=== PATIENT | female | born 1995 | race Caucasian/White ===

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

== ENCOUNTER 2017-05-10 22:11 | Emergency (ER) | payer SELFPAY ==
[2017-05-10] MEDS ORDERED: MAG HYDROX/AL HYDROX/SIMETH 30 ML, HYOSCYAMINE ELIXIR 10 ML, CIMETIDINE HCL 300 MG, LID... PO STA ×4 (22:42)
--- NOTE | 2017-05-10 22:43 | ED ---
Abdominal Pain HPI - General Chief Complaint: Abdominal Pain Stated Complaint: Throat Pain, Abd Pain, Muscle Pain in back Time Seen by Provider: 05/10/17 22:33 Source: patient Mode of arrival: ambulatory Limitations: no limitations - History of Present Illness Initial Comments: This patient is a 21-year-old woman who presents to be evaluated for 2 complaints. The first complaint is that she is having some epigastric burning that is been going on for 3-4 weeks. She states that it is constant, moderate, sometimes worse with eating. She has not noted relieving factors. It does sometimes radiate to her back. She states that the pains may have been worse after she had been given some antibiotics for suspected cervicitis. The patient states that she does occasionally have some nausea and that for about the past month she is not really having solid stools. Her second complaint is of some sore throat that she believes is related to black mold in the residence that she lives in. She denies fever or chills. No cough. There is some occasional congestion and postnasal drip. She is able to eat and drink. No change in speech or voice. MD Complaint: abdominal pain Onset/Timin -: week(s) Location: epigastric Radiation: back Severity: moderate Quality: burning Consistency: constant Improves With: nothing Worsens With: eating Context: recent antibiotic use Associated Symptoms: nausea, diarrhea - Related Data Previous Rx's Medication Instructions Recorded Famotidine [Pepcid] 20 mg PO BID #14 tablet 05/11/17 Allergies Allergy/AdvReac Type Severity Reaction Status Date / Time cefuroxime [From Ceftin] Allergy Rash/Hives Verified 05/10/17 22:26 Penicillins Allergy Rash/Hives Verified 05/10/17 22:26 sulfamethoxazole Allergy Itching Verified 05/10/17 22:26 [From Bactrim] trimethoprim [From Bactrim] Allergy Itching Verified 05/10/17 22:26 Review of Systems ROS Statement: Those systems with pertinent positive or pertinent negative responses have been documented in the HPI. ROS Other: All systems not noted in ROS Statement are negative. Constitutional: Denies: fever, chills, weakness ENT: Reports: throat pain. Denies: ear pain, dental pain, hearing loss, epistaxis, congestion Respiratory: Denies: cough, dyspnea, wheezes Cardiovascular: Denies: chest pain, palpitations Gastrointestinal: Reports: abdominal pain, nausea, diarrhea. Denies: vomiting, constipation, melena, hematochezia Genitourinary: Denies: dysuria, hematuria, discharge Musculoskeletal: Denies: back pain Skin: Denies: rash Neurological: Denies: headache, weakness, numbness Past Medical History Past Medical History: No Reported History History of Any Multi-Drug Resistant Organisms: None Reported Past Surgical History: Tonsillectomy Past Psychological History: Anxiety Smoking Status: Never smoker Past Alcohol Use History: None Reported Past Drug Use History: None Reported General Exam Limitations: no limitations General appearance: alert, in no apparent distress, obese Head exam: Present: atraumatic, normocephalic, normal inspection Eye exam: Present: normal appearance. Absent: scleral icterus, conjunctival injection ENT exam: Present: mucous membranes moist, other (There is cobblestoning of the pharynx.) Neck exam: Present: normal inspection, full ROM. Absent: tenderness, meningismus, lymphadenopathy Respiratory exam: Present: normal lung sounds bilaterally. Absent: respiratory distress, wheezes, rales, rhonchi, stridor Cardiovascular Exam: Present: regular rate, normal rhythm, normal heart sounds. Absent: systolic murmur, diastolic murmur, rubs, gallop GI/Abdominal exam: Present: soft, normal bowel sounds. Absent: distended, tenderness, guarding, rebound, mass, pulsatile mass, hernia Extremities exam: Present: normal inspection, normal capillary refill. Absent: pedal edema, calf tenderness Back exam: Absent: CVA tenderness (R), CVA tenderness (L) Neurological exam: Present: alert Skin exam: Present: warm, dry, intact, normal color. Absent: rash Course Vital Signs 05/10/17 05/10/17 22:17 23:28 Temperature 98.0 F Pulse Rate 78 72 Respiratory 18 20 Rate Blood Pressure 142/95 137/68 O2 Sat by Pulse 99 99 Oximetry Medical Decision Making - Lab Data Result diagrams: 05/10/17 23:00 05/10/17 23:00 Lab Results 05/10/17 05/10/17 05/10/17 Range/Units 23:00 23:00 23:00 WBC 15.5 H (4.0-11.0) k/uL RBC 5.01 (3.80-5.40) m/uL Hgb 14.6 (11.4-16.0) gm/dL Hct 43.3 (34.0-46.0) % MCV 86.4 (80.0-100.0) fL MCH 29.1 (25.0-35.0) pg MCHC 33.7 (31.0-37.0) g/dL RDW 14.4 (11.5-15.5) % Plt Count 342 (150-450) k/uL Neutrophils % 58 % Lymphocytes % 30 % Monocytes % 7 % Eosinophils % 2 % Basophils % 1 % Neutrophils # 9.0 H (1.3-7.7) k/uL Lymphocytes # 4.6 (1.0-4.8) k/uL Monocytes # 1.1 H (0-1.0) k/uL Eosinophils # 0.3 (0-0.7) k/uL Basophils # 0.1 (0-0.2) k/uL Sodium 140 (137-145) mmol/L Potassium 4.5 (3.5-5.1) mmol/L Chloride 106 (98-107) mmol/L Carbon Dioxide 22 (22-30) mmol/L Anion Gap 12 mmol/L BUN 13 (7-17) mg/dL Creatinine 0.90 (0.52-1.04) mg/dL Est GFR (MDRD) Af Amer >60 (>60 ml/min/1.73 sqM) Est GFR (MDRD) Non-Af >60 (>60 ml/min/1.73 sqM) Glucose 95 (74-99) mg/dL Calcium 9.9 (8.4-10.2) mg/dL Total Bilirubin 0.7 (0.2-1.3) mg/dL AST 20 (14-36) U/L ALT 36 (9-52) U/L Alkaline Phosphatase 90 (38-126) U/L Total Protein 7.2 (6.3-8.2) g/dL Albumin 4.5 (3.5-5.0) g/dL Amylase 41 (30-110) U/L Lipase 72 (23-300) U/L Urine Color Urine Appearance (Clear) Urine pH (5.0-8.0) Ur Specific [place] (1.001-1.035) Urine Protein (Negative) Urine Glucose (UA) (Negative) Urine Ketones (Negative) Urine Blood (Negative) Urine Nitrite (Negative) Urine Bilirubin (Negative) Urine Urobilinogen (<2.0) mg/dL Ur Leukocyte Esterase (Negative) Urine RBC (0-5) /hpf Urine WBC (0-5) /hpf Ur Squamous Epith Cells (0-4) /hpf Urine Bacteria (None) /hpf Urine Mucus (None) /hpf Urine HCG, Qual Not Detected (Not Detectd) Group A Strep Rapid (Negative) 05/10/17 05/10/17 Range/Units 23:00 23:22 WBC (4.0-11.0) k/uL RBC (3.80-5.40) m/uL Hgb (11.4-16.0) gm/dL Hct (34.0-46.0) % MCV (80.0-100.0) fL MCH (25.0-35.0) pg MCHC (31.0-37.0) g/dL RDW (11.5-15.5) % Plt Count (150-450) k/uL Neutrophils % % Lymphocytes % % Monocytes % % Eosinophils % % Basophils % % Neutrophils # (1.3-7.7) k/uL Lymphocytes # (1.0-4.8) k/uL Monocytes # (0-1.0) k/uL Eosinophils # (0-0.7) k/uL Basophils # (0-0.2) k/uL Sodium (137-145) mmol/L Potassium (3.5-5.1) mmol/L Chloride (98-107) mmol/L Carbon Dioxide (22-30) mmol/L Anion Gap mmol/L BUN (7-17) mg/dL Creatinine (0.52-1.04) mg/dL Est GFR (MDRD) Af Amer (>60 ml/min/1.73 sqM) Est GFR (MDRD) Non-Af (>60 ml/min/1.73 sqM) Glucose (74-99) mg/dL Calcium (8.4-10.2) mg/dL Total Bilirubin (0.2-1.3) mg/dL AST (14-36) U/L ALT (9-52) U/L Alkaline Phosphatase (38-126) U/L Total Protein (6.3-8.2) g/dL Albumin (3.5-5.0) g/dL Amylase (30-110) U/L Lipase (23-300) U/L Urine Color Yellow Urine Appearance Cloudy H (Clear) Urine pH 7.0 (5.0-8.0) Ur Specific [place] 1.019 (1.001-1.035) Urine Protein Negative (Negative) Urine Glucose (UA) Negative (Negative) Urine Ketones Negative (Negative) Urine Blood Negative (Negative) Urine Nitrite Negative (Negative) Urine Bilirubin Negative (Negative) Urine Urobilinogen <2.0 (<2.0) mg/dL Ur Leukocyte Esterase Negative (Negative) Urine RBC 1 (0-5) /hpf Urine WBC 1 (0-5) /hpf Ur Squamous Epith Cells 37 H (0-4) /hpf Urine Bacteria Rare H (None) /hpf Urine Mucus Rare H (None) /hpf Urine HCG, Qual (Not Detectd) Group A Strep Rapid Negative (Negative) Disposition Clinical Impression: Abdominal pain Disposition: HOME SELF-CARE Condition: Fair Instructions: Abdominal Pain (ED) Prescriptions: Famotidine [Pepcid] 20 mg PO BID #14 tablet Referrals: None,Stated [Primary Care Provider] - 1-2 days
[2017-05-10 23:26] LABS: Basophils # (A) 0.1 k/uL (0-0.2); Basophils % (A) 1 %; CH 30.3; CHCM 35.2; Eosinophils # (A) 0.3 k/uL (0-0.7); Eosinophils % (A) 2 %; HCT 43.3 % (34.0-46.0); HDW 2.53; HGB 14.6 gm/dL (11.4-16.0); Luc # (Auto) 0.44; Luc % (Auto) 3; Lymphocytes # (A) 4.6 k/uL (1.0-4.8); Lymphocytes % (A) 30 %; MCH 29.1 pg (25.0-35.0); MCHC 33.7 g/dL (31.0-37.0); MCV 86.4 fL (80.0-100.0); Mean Platelet Volume 7.9; Monocytes # (A) 1.1 k/uL (0-1.0); Monocytes % (A) 7 %; Neutrophils % (A) 58 %; RBC 5.01 m/uL (3.80-5.40); RDW 14.4 % (11.5-15.5); WBC 15.5 k/uL (4.0-11.0); WBC (Perox) 14.57
[2017-05-10 23:29] VITALS: RESP 20
[2017-05-10 23:37] LABS: ALT 36 U/L (9-52); AST 20 U/L (14-36); Alkaline Phosphatase 90 U/L (38-126); Amylase 41 U/L (30-110); Anion Gap 12 mmol/L; Blood Urea Nitrogen 13 mg/dL (7-17); Calcium 9.9 mg/dL (8.4-10.2); Carbon Dioxide 22 mmol/L (22-30); Chloride 106 mmol/L (98-107); Glucose 95 mg/dL (74-99); Non-African American GFR(MDRD) >60 (>60 ml/min/1.73 sqM); Potassium 4.5 mmol/L (3.5-5.1); Sodium 140 mmol/L (137-145); Total Bilirubin 0.7 mg/dL (0.2-1.3); Total Protein 7.2 g/dL (6.3-8.2)
[2017-05-10 23:44] LABS: Appearance,Urine Cloudy (Clear); Bacteria,Urine Rare /hpf; Bilirubin,Urine Negative (Negative); Glucose,Urine (UA) Negative (Negative); Ketones,Urine Negative (Negative); Leukocyte Esterase,Urine Negative (Negative); Mucus,Urine Rare /hpf; Nitrite,Urine Negative (Negative); Particle Count 6323; Protein,Urine Negative (Negative); RBC,Urine 1 /hpf (0-5); Specific Gravity,Urine 1.019 (1.001-1.035); Squamous Epithelial Cell,Urine 37 /hpf (0-4); UA Billing (MACRO vs. MICRO) MICRO; Urobilinogen,Urine <2.0 mg/dL (<2.0); WBC,Urine 1 /hpf (0-5)
[2017-05-11 00:58] VITALS: BP 140/78; PULSE 75; TEMP 98.3
== END 2017-05-11 00:58 | disposition home or self-care (01) ==
LOC: EC 22:11
DX: R10.13 Epigastric pain (principal); J39.2 Other diseases of pharynx; M54.9 Dorsalgia, unspecified; R11.0 Nausea; R19.7 Diarrhea, unspecified; J02.9 Acute pharyngitis, unspecified; R09.89 Other specified symptoms and signs involving the circulatory and respiratory systems; R09.82 Postnasal drip; E66.9 Obesity, unspecified; Z88.0 Allergy status to penicillin; Z88.1 Allergy status to other antibiotic agents; Z90.89 Acquired absence of other organs; Z68.35 Body mass index [BMI] 35.0-35.9, adult
CPT/HCPCS: 36415; 80053; 81001; 81025; 82150; 83690; 85025; 87081; 87430; 99283

== ENCOUNTER 2018-01-09 18:51 | Emergency (ER) | payer OTHER ==
[2018-01-09 19:26] VITALS: BP 146/67; PULSE 85; RESP 18; TEMP 98
--- NOTE | 2018-01-09 20:50 | ED ---
General Adult HPI - General Chief complaint: Dental/Oral Stated complaint: Dental Pain Time Seen by Provider: 01/09/18 20:08 Source: patient, RN notes reviewed, old records reviewed Mode of arrival: ambulatory Limitations: no limitations - History of Present Illness Initial comments: This is a 22-year-old female to the ER for evaluation. Patient presents ER today for evaluation of pain. Severe pain. Patient has tooth pain, history of dental abscess to caries. No fevers. No problems with swallowing - Related Data Previous Rx's Medication Instructions Recorded Famotidine [Pepcid] 20 mg PO BID #14 tablet 05/11/17 Clindamycin [Cleocin] 150 mg PO Q6H #40 capsule 01/09/18 Fluconazole [Diflucan] 150 mg PO ONCE #2 tab 01/09/18 Naproxen [Naprosyn] 500 mg PO Q12HR PRN #30 tab 01/09/18 Allergies Allergy/AdvReac Type Severity Reaction Status Date / Time cefuroxime [From Ceftin] Allergy Rash/Hives Verified 01/09/18 19:26 Penicillins Allergy Rash/Hives Verified 01/09/18 19:26 sulfamethoxazole Allergy Itching Verified 01/09/18 19:26 [From Bactrim] trimethoprim [From Bactrim] Allergy Itching Verified 01/09/18 19:26 Review of Systems ROS Statement: Those systems with pertinent positive or pertinent negative responses have been documented in the HPI. ROS Other: All systems not noted in ROS Statement are negative. Past Medical History Past Medical History: No Reported History History of Any Multi-Drug Resistant Organisms: None Reported Past Surgical History: Tonsillectomy Past Psychological History: ADD/ADHD, Anxiety Smoking Status: Never smoker Past Alcohol Use History: Occasional Past Drug Use History: None Reported General Exam Limitations: no limitations General appearance: alert, in no apparent distress Head exam: Present: atraumatic, normocephalic, normal inspection Eye exam: Present: normal appearance, PERRL, EOMI. Absent: scleral icterus, conjunctival injection, periorbital swelling ENT exam: Present: normal exam, mucous membranes moist, other (Patient has positive dental caries positive dental abscess secondary to tenderness) Neck exam: Present: normal inspection. Absent: tenderness, meningismus, lymphadenopathy Respiratory exam: Present: normal lung sounds bilaterally. Absent: respiratory distress, wheezes, rales, rhonchi, stridor Cardiovascular Exam: Present: regular rate, normal rhythm, normal heart sounds. Absent: systolic murmur, diastolic murmur, rubs, gallop, clicks GI/Abdominal exam: Present: soft, normal bowel sounds. Absent: distended, tenderness, guarding, rebound, rigid Extremities exam: Present: normal inspection, full ROM, normal capillary refill. Absent: tenderness, pedal edema, joint swelling, calf tenderness Back exam: Present: normal inspection Neurological exam: Present: alert, oriented X3, CN II-XII intact Psychiatric exam: Present: normal affect, normal mood Skin exam: Present: warm, dry, intact, normal color. Absent: rash Course Vital Signs 01/09/18 19:22 Temperature 98.0 F Pulse Rate 85 Respiratory 18 Rate Blood Pressure 146/67 O2 Sat by Pulse 100 Oximetry Medical Decision Making - Medical Decision Making 22-year-old female the ER positive dental abscess will treat patient with antibiotics and be able to discharge home Disposition Clinical Impression: Gingivitis, Dental abscess Disposition: HOME SELF-CARE Condition: Good Instructions: Dental Caries (ED) Prescriptions: Clindamycin [Cleocin] 150 mg PO Q6H #40 capsule Fluconazole [Diflucan] 150 mg PO ONCE #2 tab Naproxen [Naprosyn] 500 mg PO Q12HR PRN #30 tab PRN Reason: Pain Is patient prescribed a controlled substance at d/c from ED?: No Referrals: Maribell Rivero MD [Primary Care Provider] - 1-2 days
== END 2018-01-09 21:06 | disposition home or self-care (01) ==
LOC: EC 18:51
DX: K05.10 Chronic gingivitis, plaque induced (principal); K04.7 Periapical abscess without sinus; Z88.1 Allergy status to other antibiotic agents; Z88.2 Allergy status to sulfonamides; Z88.0 Allergy status to penicillin
CPT/HCPCS: 99283

== ENCOUNTER 2018-06-16 13:13 | Emergency (ER) | payer OTHER ==
[2018-06-16 13:23] VITALS: RESP 18
[2018-06-16] MEDS ORDERED: MAG HYDROX/AL HYDROX/SIMETH 30 ML, HYOSCYAMINE ELIXIR 10 ML, CIMETIDINE HCL 300 MG, LID... PO STA ×4 (13:37)
--- NOTE | 2018-06-16 13:39 | ED ---
General Adult HPI - General Chief complaint: Recheck/Abnormal Lab/Rx Stated complaint: chest pain/acid reflux Time Seen by Provider: 06/16/18 13:32 Source: patient, RN notes reviewed Mode of arrival: ambulatory Limitations: no limitations - History of Present Illness Initial comments: Patient 22-year-old female presented to the emergency room today with chief complaint of acid reflux. She does admit that she's had asked reflux for several years. She states she's going the hospital the past. She states that tell her to take Tums. She states that occasionally she has taken antacids with it. She is unsure the name. States not taken recently. She states that she ate dinner late last night. Woke up this morning with increased heartburn. She describes it as a burning sensation starting at the stomach radiating up to the back of her throat. States it's the same symptoms that she's had in the past. Patient does admit that pains worse when she lays down and better when she sits up. She states she usually sleeps in a chair because of this. She denies any other complaints. Patient denies any recent fever, chills, shortness of breath, chest pain, back pain, nausea or vomiting, numbness or tingling, headaches or visual changes, or any other complaints. - Related Data Home Medications Medication Instructions Recorded Confirmed Azithromycin [Zithromax Z-pack] See Taper PO DAILY 06/16/18 06/16/18 Dexamethasone [Hexadrol] 4 mg PO DAILY 06/16/18 06/16/18 Previous Rx's Medication Instructions Recorded Omeprazole 20 mg PO DAILY #20 capsule. 06/16/18 Allergies Allergy/AdvReac Type Severity Reaction Status Date / Time cefuroxime [From Ceftin] Allergy Rash/Hives Verified 06/16/18 13:34 Penicillins Allergy Rash/Hives Verified 06/16/18 13:34 sulfamethoxazole Allergy Itching Verified 06/16/18 13:34 [From Bactrim] trimethoprim [From Bactrim] Allergy Itching Verified 06/16/18 13:34 Review of Systems ROS Statement: Those systems with pertinent positive or pertinent negative responses have been documented in the HPI. ROS Other: All systems not noted in ROS Statement are negative. Past Medical History Past Medical History: No Reported History History of Any Multi-Drug Resistant Organisms: None Reported Past Surgical History: Tonsillectomy Past Psychological History: ADD/ADHD, Anxiety Smoking Status: Never smoker Past Alcohol Use History: Occasional Past Drug Use History: None Reported General Exam - General Exam Comments Initial Comments: General: The patient is awake and alert, in no distress, and does not appear acutely ill. Eye: Extra-ocular movements are intact. No nystagmus. There is normal conjunctiva bilaterally. No signs of icterus. Ears, nose, mouth and throat: There are moist mucous membranes and no oral lesions. Neck: The neck is supple, there is no tenderness or JVD. Cardiovascular: There is a regular rate and rhythm. No murmur, rub or gallop is appreciated. Respiratory: Lungs are clear to auscultation, respirations are non-labored, breath sounds are equal. No wheezes, stridor, rales, or rhonchi. Gastrointestinal: Soft, non-distended, non-tender abdomen without masses or organomegaly noted. There is no rebound or guarding present. No CVA tenderness. Musculoskeletal: Normal ROM, no tenderness. Sensation intact. Neurological: A&O x 3. CN II-XII intact, There are no obvious motor or sensory deficits. Coordination appears grossly intact. Speech is normal. Skin: Skin is warm and dry and no rashes or lesions are noted. Psychiatric: Cooperative, appropriate mood & affect, normal judgment. Limitations: no limitations Course Vital Signs 06/16/18 13:20 Temperature 98.0 F Pulse Rate 84 Respiratory 18 Rate Blood Pressure 133/81 O2 Sat by Pulse 99 Oximetry Medical Decision Making - Medical Decision Making Patient reexamined at this time shows no signs of distress. She was given GI cocktail for her symptoms. She states that she is feeling better afterwards. Patient will be given a prescription for omeprazole to start taking. She is advised follow-up with GI. Advised to return if symptoms increase or worsen. Disposition Clinical Impression: Acid reflux Disposition: HOME SELF-CARE Condition: Good Instructions: Gastroesophageal Reflux Disease (ED) Additional Instructions: Please use medication as discussed. Please follow-up with GI/family doctor in the next 2 days. Please return to emergency room if the symptoms increase or worsen or for any other concerns. Prescriptions: Omeprazole 20 mg PO DAILY #20 capsule.dr Is patient prescribed a controlled substance at d/c from ED?: No Referrals: Maribell Rivero MD [Primary Care Provider] - 1-2 days Brando Tiwari MD [STAFF PHYSICIAN] - 1-2 days Time of Disposition: 14:18
[2018-06-16 14:36] VITALS: BP 123/57; PULSE 82; TEMP 98.3
== END 2018-06-16 14:36 | disposition home or self-care (01) ==
LOC: EC 13:13
DX: K21.9 Gastro-esophageal reflux disease without esophagitis (principal); Z88.0 Allergy status to penicillin; Z88.1 Allergy status to other antibiotic agents; Z88.2 Allergy status to sulfonamides; Z79.52 Long term (current) use of systemic steroids
CPT/HCPCS: 99283

== ENCOUNTER → 2018-09-19 | Outpatient (CLI) | payer OTHER ==
--- NOTE | 2018-09-20 10:22 | USB ---
Reason for exam: clinical finding. Physical Findings: Nurse did not find any significant physical abnormalities on exam. US Breast RT Right complete breast ultrasound includes all four quadrants, the retroareolar region and axilla. Finding demonstrates a node in the axilla which is benign. And 1.7 x 0.7 cm focal fluid lobulated shape lession at the nipple. ASSESSMENT: Probably benign, BI-RAD 3 RECOMMENDATION: Ultrasound of the right breast in 2 months. Ultrasount of the Right breast in 2-3 months.
== END | disposition home or self-care (01) ==
LOC: RADMAMWWP 15:03
PROVIDERS: ATTEND Internal Medicine
DX: N63.10 Unspecified lump in the right breast, unspecified quadrant (principal)

== ENCOUNTER 2019-05-01 19:23 | Emergency (ER) | payer OTHER ==
[2019-05-01 20:07] VITALS: RESP 18
[2019-05-01 20:26] LABS: Appearance,Urine Clear (Clear); Bilirubin,Urine Negative (Negative); Blood,Urine Negative (Negative); Color,Urine Yellow; Glucose,Urine (UA) Negative (Negative); Ketones,Urine Negative (Negative); Leukocyte Esterase,Urine Negative (Negative); Nitrite,Urine Negative (Negative); Protein,Urine Trace (Negative); Specific Gravity,Urine 1.035 (1.001-1.035); Urobilinogen,Urine <2.0 mg/dL (<2.0)
[2019-05-01] MEDS ORDERED: SODIUM CHLORIDE 0.9% 1,000 ML IV STA (21:31)
[2019-05-01 22:08] LABS: Basophils # (A) 0.1 k/uL (0-0.2); Basophils % (A) 0 %; Eosinophils # (A) 0.3 k/uL (0-0.7); Eosinophils % (A) 2 %; HCT 40.7 % (34.0-46.0); HGB 13.6 gm/dL (11.4-16.0); Lymphocytes # (A) 4.2 k/uL (1.0-4.8); Lymphocytes % (A) 33 %; MCH 28.4 pg (25.0-35.0); MCHC 33.5 g/dL (31.0-37.0); MCV 84.6 fL (80.0-100.0); Mean Platelet Volume 6.8; Monocytes # (A) 0.8 k/uL (0-1.0); Monocytes % (A) 6 %; Neutrophils % (A) 56 %; Platelet Count 317 k/uL (150-450); RBC 4.81 m/uL (3.80-5.40); RDW 13.3 % (11.5-15.5); WBC 12.6 k/uL (3.8-10.6)
[2019-05-01 22:21] LABS: ALT 22 U/L (9-52); AST 19 U/L (14-36); African American GFR (CKD) >90 (>60 ml/min/1.73 sqM); Albumin 4.5 g/dL (3.5-5.0); Alkaline Phosphatase 86 U/L (38-126); Amylase 49 U/L (30-110); Anion Gap 10 mmol/L; Blood Urea Nitrogen 14 mg/dL (7-17); Calcium 9.6 mg/dL (8.4-10.2); Carbon Dioxide 25 mmol/L (22-30); Chloride 104 mmol/L (98-107); Glucose 90 mg/dL (74-99); Non-African American GFR(CKD) >90 (>60 ml/min/1.73 sqM); Potassium 4.1 mmol/L (3.5-5.1); Sodium 139 mmol/L (137-145); Total Bilirubin 0.4 mg/dL (0.2-1.3); Total Protein 7.4 g/dL (6.3-8.2)
--- NOTE | 2019-05-01 23:05 | ED ---
Abdominal Pain HPI - General Chief Complaint: Abdominal Pain Stated Complaint: Kidney Pain/Back Pain Time Seen by Provider: 05/01/19 20:31 Source: patient Mode of arrival: ambulatory Limitations: no limitations - History of Present Illness Initial Comments: 23-year-old female patient presents to the emergency department today for evaluation of bilateral flank pain. Patient states his been going on intermittently over the last 2-3 weeks. Patient states the pain will become so intense that it drops her to the floor. Patient denies any nausea or vomiting with this. Denies any constipation or diarrhea. Patient denies any hematuria, dysuria, urinary frequency, urinary urgency. She reports a benign past medical history. Denies any history of abdominal surgery. Denies any chance of . She denies any exacerbating or relieving factors with the pain. States the pain will last only a few minutes when it comes on. Patient denies any recent rash, fever, chills, shortness breath, chest pain, numbness, tingling, dizziness, weakness, headache, visual changes, or any other complaints. - Related Data Home Medications Medication Instructions Recorded Confirmed Azithromycin [Zithromax Z-pack] See Taper PO DAILY 06/16/18 06/16/18 Dexamethasone [Hexadrol] 4 mg PO DAILY 06/16/18 06/16/18 Previous Rx's Medication Instructions Recorded Omeprazole 20 mg PO DAILY #20 capsule. 06/16/18 Allergies Allergy/AdvReac Type Severity Reaction Status Date / Time cefuroxime [From Ceftin] Allergy Rash/Hives Verified 05/01/19 20:08 Penicillins Allergy Rash/Hives Verified 05/01/19 20:08 sulfamethoxazole Allergy Itching Verified 05/01/19 20:08 [From Bactrim] trimethoprim [From Bactrim] Allergy Itching Verified 05/01/19 20:08 Review of Systems ROS Statement: Those systems with pertinent positive or pertinent negative responses have been documented in the HPI. ROS Other: All systems not noted in ROS Statement are negative. Past Medical History Past Medical History: No Reported History History of Any Multi-Drug Resistant Organisms: None Reported Past Surgical History: Tonsillectomy Past Psychological History: ADD/ADHD, Anxiety Smoking Status: Never smoker Past Alcohol Use History: Occasional Past Drug Use History: None Reported General Exam Limitations: no limitations General appearance: alert, in no apparent distress, other (Physical well- developed, well-nourished adult female patient in no acute distress. Vital signs upon presentation are temperature 98.7F, pulse 67, respirations 18, blood pressure 128/79, pulse ox 98% on room air.) Eye exam: Present: normal appearance, PERRL, EOMI. Absent: scleral icterus, conjunctival injection, periorbital swelling ENT exam: Present: normal exam, normal oropharynx, mucous membranes moist Respiratory exam: Present: normal lung sounds bilaterally. Absent: respiratory distress, wheezes, rales, rhonchi, stridor Cardiovascular Exam: Present: regular rate, normal rhythm, normal heart sounds. Absent: systolic murmur, diastolic murmur, rubs, gallop, clicks GI/Abdominal exam: Present: soft, normal bowel sounds. Absent: distended, tenderness, guarding, rebound, rigid Back exam: Present: normal inspection. Absent: CVA tenderness (R), CVA tenderness (L) Neurological exam: Present: alert, oriented X3, CN II-XII intact Psychiatric exam: Present: normal affect, normal mood Skin exam: Present: warm, dry, intact, normal color. Absent: rash Course Vital Signs 05/01/19 05/01/19 05/01/19 20:04 21:26 23:19 Temperature 98.7 F 98 F Pulse Rate 67 65 76 Respiratory 18 18 18 Rate Blood Pressure 128/79 130/80 137/76 O2 Sat by Pulse 98 98 99 Oximetry Medical Decision Making - Medical Decision Making 23-year-old female patient presents to the emergency department today for evaluation of intermittent bilateral flank pain. Physical examination is unremarkable. Abdomen soft and nontender. She has no CVA tenderness. She is afebrile, vital signs. Labs reviewed and were unremarkable. Patient is currently a symptomatic. To be discharged home at this time to follow-up with her primary care physician for recheck in 1-2 days. Return parameters were discussed in detail to she verbalizes understanding and agrees with this plan. - Lab Data Result diagrams: 05/01/19 21:50 05/01/19 21:50 Lab Results 05/01/19 05/01/19 05/01/19 Range/Units 20:00 20:00 21:50 WBC (3.8-10.6) k/uL RBC (3.80-5.40) m/uL Hgb (11.4-16.0) gm/dL Hct (34.0-46.0) % MCV (80.0-100.0) fL MCH (25.0-35.0) pg MCHC (31.0-37.0) g/dL RDW (11.5-15.5) % Plt Count (150-450) k/uL Neutrophils % % Lymphocytes % % Monocytes % % Eosinophils % % Basophils % % Neutrophils # (1.3-7.7) k/uL Lymphocytes # (1.0-4.8) k/uL Monocytes # (0-1.0) k/uL Eosinophils # (0-0.7) k/uL Basophils # (0-0.2) k/uL Sodium 139 (137-145) mmol/L Potassium 4.1 (3.5-5.1) mmol/L Chloride 104 (98-107) mmol/L Carbon Dioxide 25 (22-30) mmol/L Anion Gap 10 mmol/L BUN 14 (7-17) mg/dL Creatinine 0.81 (0.52-1.04) mg/dL Est GFR (CKD-EPI)AfAm >90 (>60 ml/min/1.73 sqM) Est GFR (CKD-EPI)NonAf >90 (>60 ml/min/1.73 sqM) Glucose 90 (74-99) mg/dL Calcium 9.6 (8.4-10.2) mg/dL Total Bilirubin 0.4 (0.2-1.3) mg/dL AST 19 (14-36) U/L ALT 22 (9-52) U/L Alkaline Phosphatase 86 (38-126) U/L Total Protein 7.4 (6.3-8.2) g/dL Albumin 4.5 (3.5-5.0) g/dL Amylase 49 (30-110) U/L Lipase 76 (23-300) U/L Urine Color Yellow Urine Appearance Clear (Clear) Urine pH 6.0 (5.0-8.0) Ur Specific Wall 1.035 (1.001-1.035) Urine Protein Trace H (Negative) Urine Glucose (UA) Negative (Negative) Urine Ketones Negative (Negative) Urine Blood Negative (Negative) Urine Nitrite Negative (Negative) Urine Bilirubin Negative (Negative) Urine Urobilinogen <2.0 (<2.0) mg/dL Ur Leukocyte Esterase Negative (Negative) Urine HCG, Qual Not Detected (Not Detectd) 05/01/19 Range/Units 21:50 WBC 12.6 H (3.8-10.6) k/uL RBC 4.81 (3.80-5.40) m/uL Hgb 13.6 (11.4-16.0) gm/dL Hct 40.7 (34.0-46.0) % MCV 84.6 (80.0-100.0) fL MCH 28.4 (25.0-35.0) pg MCHC 33.5 (31.0-37.0) g/dL RDW 13.3 (11.5-15.5) % Plt Count 317 (150-450) k/uL Neutrophils % 56 % Lymphocytes % 33 % Monocytes % 6 % Eosinophils % 2 % Basophils % 0 % Neutrophils # 7.0 (1.3-7.7) k/uL Lymphocytes # 4.2 (1.0-4.8) k/uL Monocytes # 0.8 (0-1.0) k/uL Eosinophils # 0.3 (0-0.7) k/uL Basophils # 0.1 (0-0.2) k/uL Sodium (137-145) mmol/L Potassium (3.5-5.1) mmol/L Chloride (98-107) mmol/L Carbon Dioxide (22-30) mmol/L Anion Gap mmol/L BUN (7-17) mg/dL Creatinine (0.52-1.04) mg/dL Est GFR (CKD-EPI)AfAm (>60 ml/min/1.73 sqM) Est GFR (CKD-EPI)NonAf (>60 ml/min/1.73 sqM) Glucose (74-99) mg/dL Calcium (8.4-10.2) mg/dL Total Bilirubin (0.2-1.3) mg/dL AST (14-36) U/L ALT (9-52) U/L Alkaline Phosphatase (38-126) U/L Total Protein (6.3-8.2) g/dL Albumin (3.5-5.0) g/dL Amylase (30-110) U/L Lipase (23-300) U/L Urine Color Urine Appearance (Clear) Urine pH (5.0-8.0) Ur Specific Wall (1.001-1.035) Urine Protein (Negative) Urine Glucose (UA) (Negative) Urine Ketones (Negative) Urine Blood (Negative) Urine Nitrite (Negative) Urine Bilirubin (Negative) Urine Urobilinogen (<2.0) mg/dL Ur Leukocyte Esterase (Negative) Urine HCG, Qual (Not Detectd) - Radiology Data Radiology results: report reviewed, image reviewed Two-view x-ray of the abdomen is obtained. Report was reviewed in its entirety. Impression by Dr. Dueñas shows no radiographic abnormality to explain patient's symptoms. Disposition Clinical Impression: Flank pain Disposition: HOME SELF-CARE Condition: Good Instructions (If sedation given, give patient instructions): Flank Pain (ED) Additional Instructions: Increase fluids. Follow up with your primary care physician for recheck in 1-2 days. Return to the emergency department immediately for any new, worsening, or concerning symptoms. Is patient prescribed a controlled substance at d/c from ED?: No Referrals: Christopher Padilla MD [Primary Care Provider] - 1-2 days Time of Disposition: 23:05
--- NOTE | 2019-05-01 23:16 | XR ---
EXAM: XR Abdomen, 2 Views CLINICAL HISTORY: ITS.REASON XR Reason: abdominal pain TECHNIQUE: Frontal view of the abdomen/pelvis with upright view of the abdomen. COMPARISON: No relevant prior studies available. FINDINGS: Intraperitoneal space: No free air. Gastrointestinal tract: Unremarkable. No dilation. Bones/joints: Unremarkable. IMPRESSION: No radiographic abnormality to explain patient's symptoms.
[2019-05-01 23:19] VITALS: BP 137/76; PULSE 76; TEMP 98
== END 2019-05-01 23:22 | disposition home or self-care (01) ==
LOC: EC 19:23
DX: R10.9 Unspecified abdominal pain (principal); Z88.1 Allergy status to other antibiotic agents; Z88.0 Allergy status to penicillin; Z88.2 Allergy status to sulfonamides
CPT/HCPCS: 36415; 74018; 80053; 81003; 81025; 82150; 83690; 85025; 99284

== ENCOUNTER 2019-05-16 08:29 | Emergency (ER) | payer OTHER ==
[2019-05-16] MEDS ORDERED: SODIUM CHLORIDE 0.9% 500 ML 500 ML IV STA (08:52)
--- NOTE | 2019-05-16 08:54 | ED ---
General Adult HPI - General Chief complaint: Headache Stated complaint: headache Time Seen by Provider: 05/16/19 08:40 Source: patient, RN notes reviewed Mode of arrival: ambulatory Limitations: no limitations - History of Present Illness Initial comments: Patient is a pleasant 23-year-old female presenting to the emergency Department with complaints of headache. Onset of symptoms was around 2 weeks ago. Symptoms have been waxing and waning. Patient attributes headaches occasionally to a chronic left frontal tooth pain that she has had. Patient does have plans to follow-up again with her dentist for this. Patient has had problems with this previously. Patient also attributes problems to her neck at times. Patient has seen the chiropractor previously with some improvement of symptoms. Patient states Tylenol does resolve her symptoms however symptoms do return. Patient states sometimes headache is gradual onset and sometimes it seems fairly quick. Discomfort is mild to moderate at this time. Discomfort is left-sided. - Related Data Home Medications Medication Instructions Recorded Confirmed Acetaminophen Tab [Tylenol Tab] 500 mg PO Q6HR PRN 05/16/19 05/16/19 Ibuprofen [Motrin Ib] 800 mg PO Q6H PRN 05/16/19 05/16/19 Allergies Allergy/AdvReac Type Severity Reaction Status Date / Time cefuroxime [From Ceftin] Allergy Rash/Hives Verified 05/16/19 09:39 Penicillins Allergy Rash/Hives Verified 05/16/19 09:39 sulfamethoxazole Allergy Itching Verified 05/16/19 09:39 [From Bactrim] trimethoprim [From Bactrim] Allergy Itching Verified 05/16/19 09:39 Review of Systems ROS Statement: Those systems with pertinent positive or pertinent negative responses have been documented in the HPI. ROS Other: All systems not noted in ROS Statement are negative. Constitutional: Denies: fever Eyes: Denies: eye pain ENT: Denies: ear pain Respiratory: Denies: cough Cardiovascular: Denies: chest pain Endocrine: Denies: fatigue Gastrointestinal: Denies: abdominal pain Genitourinary: Denies: dysuria Musculoskeletal: Denies: back pain Skin: Denies: rash Neurological: Reports: headache. Denies: weakness, confusion Past Medical History Past Medical History: No Reported History History of Any Multi-Drug Resistant Organisms: None Reported Past Surgical History: Tonsillectomy Past Psychological History: ADD/ADHD, Anxiety Smoking Status: Never smoker Past Alcohol Use History: Occasional Past Drug Use History: None Reported General Exam Limitations: no limitations General appearance: alert, in no apparent distress Head exam: Present: atraumatic Eye exam: Present: normal appearance, PERRL, EOMI ENT exam: Present: normal oropharynx Neck exam: Present: normal inspection Respiratory exam: Present: normal lung sounds bilaterally Cardiovascular Exam: Present: regular rate, normal rhythm GI/Abdominal exam: Present: soft. Absent: distended, tenderness, guarding Extremities exam: Present: normal inspection Neurological exam: Present: alert, CN II-XII intact. Absent: motor sensory deficit Expanded Cranial nerves: EOM's Intact: Normal Motor strength exam: RUE: 5, LUE: 5, RLE: 5, LLE: 5 Eye Response: (4) open spontaneously Motor Response: (6) obeys commands Verbal Response: (5) oriented Psychiatric exam: Present: normal affect, normal mood Skin exam: Present: normal color Course Vital Signs 05/16/19 08:30 Temperature 97.8 F Pulse Rate 84 Respiratory 18 Rate Blood Pressure 153/90 O2 Sat by Pulse 99 Oximetry Medical Decision Making - Medical Decision Making Patient reevaluated and resting comfortably in bed. Patient states symptoms are still mild to moderate and is receptive to Toradol. Patient does not want any narcotics. Patient updated on results and need for follow-up. Patient states she will see her regular doctor and discuss neurology evaluation. - Lab Data Result diagrams: 05/16/19 09:10 05/16/19 09:10 Lab Results 05/16/19 05/16/19 Range/Units 09:10 09:10 WBC 10.6 (3.8-10.6) k/uL RBC 5.09 (3.80-5.40) m/uL Hgb 14.3 (11.4-16.0) gm/dL Hct 43.4 (34.0-46.0) % MCV 85.3 (80.0-100.0) fL MCH 28.1 (25.0-35.0) pg MCHC 33.0 (31.0-37.0) g/dL RDW 14.7 (11.5-15.5) % Plt Count 336 (150-450) k/uL Neutrophils % 55 % Lymphocytes % 32 % Monocytes % 7 % Eosinophils % 3 % Basophils % 1 % Neutrophils # 5.8 (1.3-7.7) k/uL Lymphocytes # 3.3 (1.0-4.8) k/uL Monocytes # 0.7 (0-1.0) k/uL Eosinophils # 0.4 (0-0.7) k/uL Basophils # 0.1 (0-0.2) k/uL Sodium 138 (137-145) mmol/L Potassium 4.3 (3.5-5.1) mmol/L Chloride 105 (98-107) mmol/L Carbon Dioxide 23 (22-30) mmol/L Anion Gap 10 mmol/L BUN 16 (7-17) mg/dL Creatinine 0.75 (0.52-1.04) mg/dL Est GFR (CKD-EPI)AfAm >90 (>60 ml/min/1.73 sqM) Est GFR (CKD-EPI)NonAf >90 (>60 ml/min/1.73 sqM) Glucose 100 H (74-99) mg/dL Calcium 9.5 (8.4-10.2) mg/dL Total Bilirubin 0.8 (0.2-1.3) mg/dL AST 19 (14-36) U/L ALT 26 (9-52) U/L Alkaline Phosphatase 67 (38-126) U/L Total Protein 7.3 (6.3-8.2) g/dL Albumin 4.3 (3.5-5.0) g/dL - Radiology Data Radiology results: report reviewed (Computed tomography scan of the brain shows partially empty sella. Cannot exclude pseudotumor cerebri. CT angios shows no acute abnormality. There is an anatomical variant.) Disposition Clinical Impression: Headache Disposition: HOME SELF-CARE Condition: Stable Instructions (If sedation given, give patient instructions): Acute Headache (ED) Additional Instructions: Please follow-up with primary care physician in the next couple days for recheck. Discuss with your doctor and have him review CT reports regarding neurology evaluation. Also follow-up with your dentist in the next couple of days. Consider physical therapy. Continue [id number] Tylenol or Motrin as needed. Return for increased pain, weakness, confusion, visual changes, fevers, worsening symptoms or other concerns. Is patient prescribed a controlled substance at d/c from ED?: No Referrals: Christopher Padilla MD [Primary Care Provider] - 1-2 days Time of Disposition: 10:18
[2019-05-16 09:33] LABS: Basophils # (A) 0.1 k/uL (0-0.2); Basophils % (A) 1 %; Eosinophils # (A) 0.4 k/uL (0-0.7); Eosinophils % (A) 3 %; HCT 43.4 % (34.0-46.0); HGB 14.3 gm/dL (11.4-16.0); Lymphocytes # (A) 3.3 k/uL (1.0-4.8); Lymphocytes % (A) 32 %; MCH 28.1 pg (25.0-35.0); MCV 85.3 fL (80.0-100.0); Mean Platelet Volume 7.6; Monocytes # (A) 0.7 k/uL (0-1.0); Monocytes % (A) 7 %; Neutrophils # (A) 5.8 k/uL (1.3-7.7); Neutrophils % (A) 55 %; Platelet Count 336 k/uL (150-450); RBC 5.09 m/uL (3.80-5.40); RDW 14.7 % (11.5-15.5); WBC 10.6 k/uL (3.8-10.6)
[2019-05-16 09:38] LABS: ALT 26 U/L (9-52); AST 19 U/L (14-36); African American GFR (CKD) >90 (>60 ml/min/1.73 sqM); Albumin 4.3 g/dL (3.5-5.0); Alkaline Phosphatase 67 U/L (38-126); Anion Gap 10 mmol/L; Blood Urea Nitrogen 16 mg/dL (7-17); Calcium 9.5 mg/dL (8.4-10.2); Carbon Dioxide 23 mmol/L (22-30); Chloride 105 mmol/L (98-107); Glucose 100 mg/dL (74-99); Potassium 4.3 mmol/L (3.5-5.1); Sodium 138 mmol/L (137-145); Total Bilirubin 0.8 mg/dL (0.2-1.3); Total Protein 7.3 g/dL (6.3-8.2)
--- NOTE | 2019-05-16 09:49 | CT ---
EXAMINATION TYPE: CT brain wo con DATE OF EXAM: 05/16/2019 COMPARISON: None HISTORY: 23-year-old female Left sided headache on and off x 2 weeks. TECHNIQUE: Examination was done in axial plane without intravenous contrast. Coronal and sagittal r econstructions performed. CT DLP: 1172 mGycm Automated exposure control for dose reduction was used. FINDINGS: There is no evidence of acute intracranial hemorrhage, acute ischemic changes, mass, mass-effect, or extra-axial fluid collection. There is no effacement of cerebral sulci or basal subarachnoid cister ns. There is no hydrocephalus. There is no midline shift. Bergman-white matter distinction is preserv ed. Incidental partially empty sella. Craniocervical junction is within normal limits. Orbits and globes are intact. Paranasal sinuses and mastoid air cells are pneumatized. Leftward nasal septal deviation. IMPRESSION: 1. No acute intracranial abnormality seen. 2. Partially empty sella. Questionable clinical significance. However, if the patient fits [facility] t demographics, consider correlation with funduscopic exam to exclude pseudotumor cerebri as a differ ential consideration.
--- NOTE | 2019-05-16 09:51 | CT ---
EXAMINATION TYPE: CT angio head DATE OF EXAM: 05/16/2019 COMPARISON: Noncontrast brain performed at the same time HISTORY: 23-year-old female Left sided headache on and off x 2 weeks. TECHNIQUE: Contiguous axial scanning of the brain performed with IV Contrast, patient injected with 5 0 mL of Isovue 370. Coronal/sagittal MIP reconstructions performed. 3-D reconstructions generated on dedicated independent workstation. CT DLP: 818.8 mGycm Automated exposure control for dose reduction was used. FINDINGS: The left vertebral artery is dominant. The right vertebral artery terminates as a PICA branch. The ba silar artery and remainder of the posterior circulation is patent. The internal carotid arteries and remainder of the anterior circulation are patent. No significant stenosis or aneurysmal change. 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 OTH ERWISE, UNREMARKABLE CTA [place] OF [place].
[2019-05-16] MEDS ORDERED: KETOROLAC 30 MG/ML 1 ML VIAL IVP STA (10:16)
[2019-05-16 10:39] VITALS: BP 120/76; PULSE 72; RESP 16; TEMP 98
== END 2019-05-16 10:37 | disposition home or self-care (01) ==
LOC: EC 08:29
DX: R51 Headache (principal); Z88.0 Allergy status to penicillin; Z88.1 Allergy status to other antibiotic agents; Z88.2 Allergy status to sulfonamides
CPT/HCPCS: 36415; 80053; 85025; 70496; 70450; 99284; 96374; J1885; Q9967

== ENCOUNTER 2020-06-20 18:24 | Emergency (ER) | payer OTHER ==
[2020-06-20 18:46] VITALS: TEMP 98.8
[2020-06-20] MEDS ORDERED: LIDOCAINE 1% INJ 10MG/ML (20 ML MDV) SQ ONE (19:15)
--- NOTE | 2020-06-20 19:27 | ED ---
General Adult HPI - General Chief complaint: Skin/Abscess/Foreign Body Stated complaint: abcess on back, sent by gang miner Source: patient Mode of arrival: ambulatory Limitations: no limitations - History of Present Illness Initial comments: 24-year-old female history of sebaceous cyst on the back presenting today for chief complaint of cyst pain. Patient states that she had a cyst this and previous and drained by her gang miner. She said she is unable to get an appointment until July 18 and states the cyst has been painful lately. She denies any fever chills general malaise. She denies any spontaneous drainage. Patient states when she called her gang miner to let them know it was bugging her she was told it would probably be best if she came to the ER for drainage sooner. Patient denies additional complaints. She appears well nontoxic in no acute distress. Denies . Afebrile on arrival. HR within acceptable limits, BP stable. - Related Data Home Medications Medication Instructions Recorded Confirmed Acetaminophen Tab [Tylenol Tab] 500 mg PO Q6HR PRN 05/16/19 05/16/19 Ibuprofen [Motrin Ib] 800 mg PO Q6H PRN 05/16/19 05/16/19 Previous Rx's Medication Instructions Recorded Clindamycin [Cleocin] 450 mg PO Q8H 7 Days #63 capsule 06/20/20 Allergies Allergy/AdvReac Type Severity Reaction Status Date / Time cefuroxime [From Ceftin] Allergy Rash/Hives Verified 06/20/20 18:46 Penicillins Allergy Rash/Hives Verified 06/20/20 18:46 sulfamethoxazole Allergy Itching Verified 06/20/20 18:46 [From Bactrim] trimethoprim [From Bactrim] Allergy Itching Verified 06/20/20 18:46 Review of Systems ROS Statement: Those systems with pertinent positive or pertinent negative responses have been documented in the HPI. ROS Other: All systems not noted in ROS Statement are negative. Past Medical History Past Medical History: No Reported History History of Any Multi-Drug Resistant Organisms: None Reported Past Surgical History: Tonsillectomy Past Psychological History: ADD/ADHD, Anxiety Smoking Status: Never smoker Past Alcohol Use History: Occasional Past Drug Use History: None Reported General Exam - General Exam Comments Initial Comments: General: The patient is awake and alert, in no distress Eye: Pupils are equal, round and reactive to light, extra-ocular movements are intact. No nystagmus. There is normal conjunctiva bilaterally. No signs of icterus. Cardiovascular: There is a regular rate and rhythm. No murmur, rub or gallop is appreciated. Respiratory: Lungs are clear to auscultation, respirations are non-labored, breath sounds are equal. No wheezes, stridor, rales, or rhonchi. Musculoskeletal: Normal ROM, no tenderness. Strength 5/5. Sensation intact. Radial pulses equal bilaterally 2+. Neurological: A&O x 3. CN II-XII intact grossly, There are no obvious motor or sensory deficits. Coordination appears grossly intact. Speech is normal. Skin: Skin is warm and dry and no rashes.3x3cm fluctuant area on the right upper mid back. Patient tender to touch over the area. No spontaneous drainage or diffuse redness appreciated. Psychiatric: Cooperative, appropriate mood & affect, normal judgment. Limitations: no limitations Course Vital Signs 06/20/20 18:43 Temperature 98.8 F Pulse Rate 82 Respiratory 18 Rate Blood Pressure 133/83 O2 Sat by Pulse 100 Oximetry Procedures - Incision & Drainage Consent Obtained: verbal consent, written consent Indication: abscess upper right back Site: back Size (cm): 3 Anesthetic Used: lidocaine 1% Amount (mLs): 1 I&D Cleaning Method: Iodine Sterile Field Used?: No Scalpel Used: #11 Needle Aspiration Performed?: No Irrigation Performed?: No I&D Drainage Obtained: Pus, Blood Culture Obtained?: No Patient Tolerated Procedure: well Medical Decision Making - Medical Decision Making Concern for abscess vs sebaceous cyst. I&D performed revealing purulent liquid drainage most consistent with abscess. Patient does not appear toxic. Pt will be placed on clindamycin and is to f/u with PCP> Patient is agreeable to care plan and discharge at this time.Return parameters were discussed, importance of monitoring for signs of infection/worsening. Disposition Clinical Impression: Back abscess Disposition: HOME SELF-CARE Condition: Good Instructions (If sedation given, give patient instructions): Abscess Incision and Drainage (ED) Additional Instructions: Please use medication as discussed. Please follow-up with family doctor in the next 2 days, dermatology as scheduled. Return for increasing pain, redness, drainage, swelling or fevers. Please return to emergency room if the symptoms increase or worsen or for any other concerns. Prescriptions: Clindamycin [Cleocin] 450 mg PO Q8H 7 Days #63 capsule Is patient prescribed a controlled substance at d/c from ED?: No Referrals: Christopher Padilla MD [Primary Care Provider] - 1-2 days Time of Disposition: 19:55
[2020-06-20] MEDS ORDERED: CLINDAMYCIN 150 MG CAP PO STA (19:54)
[2020-06-20 20:07] VITALS: BP 141/88; PULSE 56; RESP 16
== END 2020-06-20 20:10 | disposition home or self-care (01) ==
LOC: EC 18:24
DX: L02.212 Cutaneous abscess of back [any part, except buttock and flank] (principal); Z88.1 Allergy status to other antibiotic agents; Z88.2 Allergy status to sulfonamides; Z88.0 Allergy status to penicillin
CPT/HCPCS: 10060; 99283; J2001

== ENCOUNTER 2023-01-24 20:30 | Emergency (ER) | payer OTHER ==
[2023-01-24 20:44] VITALS: RESP 16
[2023-01-24] MEDS ORDERED: KETOROLAC 15 MG/ML 1 ML VIAL IM STA (20:56)
--- NOTE | 2023-01-24 21:09 | XR ---
EXAMINATION TYPE: XR knee complete LT DATE OF EXAM: 01/24/2023 CLINICAL HISTORY: pain TECHNIQUE: Three views of the left knee are obtained. COMPARISON: None. FINDINGS: There is no acute fracture/dislocation. The tri-compartment joint spaces appear within no rmal limits. Moderate suprapatellar joint effusion. IMPRESSION: There is no acute fracture or dislocation ICD 10 NO FRACTURE, INITIAL EVALUATION
--- NOTE | 2023-01-24 21:17 | ED ---
Lower Extremity Injury HPI - General Chief Complaint: Extremity Injury, Lower Stated Complaint: left knee pain Time Seen by Provider: 01/24/23 20:45 Source: patient Mode of arrival: wheelchair Limitations: no limitations - History of Present Illness Initial Comments: Patient is a 27-year-old female presenting with chief complaint of left knee pain. Patient states that 2 days ago she injured it when she stepped inside of a hole in the ground and felt her knee snap. She was evaluated at [facility] advised to use a knee immobilizer and crutches. She states that she is having increased pain and swelling to the leg and wanted a second opinion. She is taking Advil as needed. No discoloration. No pallor. Extremities warm and pink. No numbness or tingling. No chest pain or difficulty breathing. - Related Data Home Medications Medication Instructions Recorded Confirmed Acetaminophen Tab [Tylenol Tab] 500 mg PO Q6HR PRN 05/16/19 01/24/23 Ibuprofen [Motrin Ib] 800 mg PO Q6H PRN 05/16/19 01/24/23 Albuterol Inhaler [Ventolin Hfa 1 puff INHALATION RT-Q4H PRN 01/24/23 01/24/23 Inhaler] Diclofenac Sodium Gel [Voltaren 1 applic TOPICAL QID PRN 01/24/23 01/24/23 Gel] Fluticasone Propionate 220 Mcg 2 puff INHALATION RT-BID 01/24/23 01/24/23 [Flovent 220 Mcg Inhaler] Previous Rx's Medication Instructions Recorded Acetaminophen Tab [Tylenol Tab] 500 mg PO Q4H PRN #30 tablet 01/24/23 Allergies Allergy/AdvReac Type Severity Reaction Status Date / Time cefuroxime [From Ceftin] Allergy Rash/Hives Verified 01/24/23 21:17 Penicillins Allergy Rash/Hives Verified 01/24/23 21:17 sulfamethoxazole Allergy Itching Verified 01/24/23 21:17 [From Bactrim] trimethoprim [From Bactrim] Allergy Itching Verified 01/24/23 21:17 Review of Systems ROS Statement: Those systems with pertinent positive or pertinent negative responses have been documented in the HPI. ROS Other: All systems not noted in ROS Statement are negative. Past Medical History Past Medical History: No Reported History History of Any Multi-Drug Resistant Organisms: None Reported Past Surgical History: Adenoidectomy, Tonsillectomy Past Psychological History: ADD/ADHD, Anxiety Smoking Status: Never smoker Past Alcohol Use History: Occasional Past Drug Use History: None Reported General Exam Limitations: no limitations General appearance: alert, in no apparent distress Head exam: Present: atraumatic, normocephalic, normal inspection Eye exam: Present: normal appearance, EOMI. Absent: scleral icterus, periorbital swelling Neck exam: Present: normal inspection, full ROM Left Upper Leg exam: Present: tenderness, swelling Knee exam: Present: tenderness, swelling. Absent: full ROM Lower Leg exam: Present: tenderness, swelling Neurovascular tendon exam: Present: no vascular compromise Neurological exam: Present: alert, oriented X3, CN II-XII intact Psychiatric exam: Present: normal affect, normal mood Skin exam: Present: warm, dry, intact, normal color. Absent: rash Course Vital Signs 01/24/23 20:41 Temperature 98.5 F Pulse Rate 76 Respiratory 16 Rate Blood Pressure 162/100 O2 Sat by Pulse 98 Oximetry Medical Decision Making - Medical Decision Making Was pt. sent in by a medical professional or institution (, PA, CRIME SPECIALIST, urgent care, hospital, or usp...) When possible be specific @ -No Did you speak to anyone other than the patient for history (EMS, parent, family, police, friend...)? What history was obtained from this source @ -No Did you review nursing and triage notes (agree or disagree)? Why? @ -I reviewed and agree with nursing and triage notes Were old charts reviewed (outside hosp., previous admission, EMS record, old EKG, old radiological studies, urgent care reports/EKG's, usp records)? Report findings @ -No old charts were reviewed Differential Diagnosis (chest pain, altered mental status, abdominal pain women, abdominal pain men, vaginal bleeding, weakness, fever, dyspnea, syncope, headache, dizziness, GI bleed, back pain, seizure, CVA, palpatations, mental health, musculoskeletal)? @ -Differential Musculoskeletal Muscular strain, contusion, ligament sprain, fracture, arthritis, septic arthritis, bursitis, cellulitis, muscle spasm, nerve compression, DVT, arterial occlusion, herpes zoster, electrolyte abnormality, tumor.... This is not meant to be in all inclusive list EKG interpreted by me (3pts min.). @ -As above X-rays interpreted by me (1pt min.). @ -X-ray shows no fracture or dislocation CT interpreted by me (1pt min.). @ -None done U/S interpreted by me (1pt. min.). @ -Ultrasound is negative for DVT What testing was considered but not performed or refused? (CT, X-rays, U/S, labs)? Why? @ -None What meds were considered but not given or refused? Why? @ -None Did you discuss the management of the patient with other professionals (professionals i.e. , PA, CRIME SPECIALIST, lab, RT, psych nurse, social services manager, commissary assistant, teacher, morals squad police officer, rn field case manager)? Give summary @ -No Was smoking cessation discussed for >3mins.? @ -No Was critical care preformed (if so, how long)? @ -No Were there social determinants of health that impacted care today? How? (Homelessness, low income, unemployed, alcoholism, drug addiction, transportatio n, low edu. Level, literacy, decrease access to med. care, care home, rehab)? @ -No Was there de-escalation of care discussed even if they declined (Discuss DNR or withdrawal of care, Hospice)? DNR status @ -No What co-morbidities impacted this encounter? (DM, HTN, Smoking, COPD, CAD, Cancer, CVA, ARF, Chemo, Hep., AIDS, mental health diagnosis, sleep apnea, morbid obesity)? @ -None Was patient admitted / discharged? Hospital course, mention meds given and route, prescriptions, significant lab abnormalities, going to OR and other pertinent info. @ -Patient is a 27-year-old female presenting with chief complaint of left knee pain and swelling. Injury 2 days ago. On physical examination there is significant swelling to the left leg. No vascular compromise. No discoloration or redness. Patient is in a knee immobilizer. X-rays negative for fracture or dislocation and US WAS NEGATIVE FOR DVT. PATIENT WAS EDUCATED ON KNEE SPRAIN AND PROVIDED WITH CRUTCHES. SHE IS INSTRUCTED TO FOLLOW-UP WITH ORTHOPEDICS. EDUCATED ON SUPPORTIVE MANAGEMENT WITH MOTRIN, TYLENOL, REST, ICE, COMPRESSION, AND ELEVATION. Follow-up with PCP. Report back to ER with any new or worsening symptoms. Discussed return parameters and answered all questions. Patient conveyed verbal understanding and agreed to the plan. I discussed this case in detail with my attending Dr. Ritchie Undiagnosed new problem with uncertain prognosis? @ -No Drug Therapy requiring intensive monitoring for toxicity (Heparin, Nitro, Insulin, Cardizem)? @ -No Were any procedures done? @ -No Diagnosis/symptom? @ -Knee sprain Acute, or Chronic, or Acute on Chronic? @ -Acute Uncomplicated (without systemic symptoms) or Complicated (systemic symptoms)? @ -Uncomplicated Side effects of treatment? @ -No Exacerbation, Progression, or Severe Exacerbation? @ -No Poses a threat to life or bodily function? How? (Chest pain, [place], MA, pneumonia, PE, COPD, DKA, ARF, appy, cholecystitis, CVA, Diverticulitis, Homicidal, Suicidal, threat to staff... and all critical care pts) @ -No Disposition Clinical Impression: Knee sprain Disposition: HOME SELF-CARE Condition: Good Instructions (If sedation given, give patient instructions): Knee Sprain (ED) Additional Instructions: Follow-up with PCP and ortho. Report back to ER with any new or worsening symptoms. Take Motrin and Tylenol for pain control. Rest, ice, elevate the knee. Remain in knee immobilizer and use crutches to remain nonweightbearing. Prescriptions: Acetaminophen Tab [Tylenol Tab] 500 mg PO Q4H PRN #30 tablet PRN Reason: Pain Is patient prescribed a controlled substance at d/c from ED?: No Referrals: Nonstaff,Physician [Primary Care Provider] - 1-2 days Flaco Bach DO [Doctor of Osteopathic Medicine] - 1-2 days Time of Disposition: 21:48
--- NOTE | 2023-01-24 21:40 | US ---
EXAMINATION TYPE: US venous doppler duplex LE LT DATE OF EXAM: 01/24/2023 8:56 PM COMPARISON: NONE CLINICAL INDICATION: Female, 27 years old with history of leg swelling; Left leg pain after injury SIDE PERFORMED: Left TECHNIQUE: The lower extremity deep venous system is examined utilizing real time linear array sonog mae with graded compression, doppler sonography and color-flow sonography. VESSELS IMAGED: Common Femoral Vein Deep Femoral Vein Greater Saphenous Vein * Femoral Vein Popliteal Vein Small Saphenous Vein * Proximal Calf Veins (* superficial vessels) Left Leg: Negative for DVT IMPRESSION: No evidence for DVT at this time.
[2023-01-24 22:23] VITALS: BP 128/69; PULSE 72; TEMP 98.6
== END 2023-01-24 22:10 | disposition home or self-care (01) ==
LOC: EC 20:30
DX: S83.92XA Sprain of unspecified site of left knee, initial encounter (principal); F41.9 Anxiety disorder, unspecified; Z79.51 Long term (current) use of inhaled steroids; Z88.0 Allergy status to penicillin; Z88.1 Allergy status to other antibiotic agents; Z88.2 Allergy status to sulfonamides; W18.42XA Slipping, tripping and stumbling without falling due to stepping into hole or opening, initial encounter
CPT/HCPCS: 73562; 93971; 99284; 96372; J1885